=== PATIENT | female | born 1960 | race Two or more races ===

== ENCOUNTER 2021-12-13 12:24 | Emergency (ER) | payer BC, OTHER ==
[~2021-12-13] VITALS: Ht 162.6 cm; Wt 82.0 kg
[2021-12-13 14:08] VITALS: BP 149/91
[2021-12-13] MEDS ORDERED: IBUP800T27 PO (14:45)
[2021-12-13] MEDS ORDERED: KETOROLAC TROMETH 60MG/2ML VIAL IM ONE (14:45)
== END 2021-12-13 14:48 | disposition home or self-care (01) ==
LOC: ER 12:24
DX: S00.03XA Contusion of scalp, initial encounter (principal); X58.XXXA Exposure to other specified factors, initial encounter; Y93.89 Activity, other specified; Y92.89 Other specified places as the place of occurrence of the external cause; Y99.8 Other external cause status
CPT/HCPCS: 70450; 96372; 99284; J1885